=== PATIENT | male | born 1995 | race Caucasian/White ===

== ENCOUNTER 2017-11-05 15:58 | Emergency (ER) | payer BC ==
[2017-11-05] MEDS: KETOROLAC 30 MG INJ IV (18:15)
[2017-11-05] MEDS: SOD CHLORIDE 0.9% 1,000 ML IV (18:15)
[2017-11-05 18:27] LABS: ADD MAN DIFF? NO
[2017-11-05 18:33] LABS: WHITE BLOOD COUNT 8.1 10^3/ul (4.8-10.8)
[2017-11-05 18:33] LABS: BASOPHIL # 0.1 10^3/ul (0.0-0.1); BASOPHILS % 0.9 % (0.0-2.0); EOSINOPHILS # 0.1 10^3/ul (0.0-0.5); EOSINOPHILS % 1.4 % (0.0-7.0); HEMATOCRIT 50.2 % (42.0-52.0); HEMOGLOBIN 17.3 g/dl (14.0-18.0); LYMPHOCYTES # 2.7 10^3/ul (0.8-2.9); LYMPHOCYTES % 33.3 % (15.0-51.0); MEAN CORPUSCULAR HEMOGLOBIN 28.2 pg (29.0-33.0); MEAN CORPUSCULAR HGB CONC 34.5 g/dl (32.0-37.0); MEAN CORPUSCULAR VOLUME 81.9 fl (82.0-101.0); MONOCYTE # 0.5 10^3/ul (0.3-0.9); MONOCYTES % 5.8 % (0.0-11.0); NEUTROPHIL # 4.7 10^3/ul (1.6-7.5); NEUTROPHILS % 58.2 % (39.0-77.0); PLATELET COUNT 196 10^3/UL (140-415); RED BLOOD COUNT 6.13 10^6/ul (4.70-6.10)
[2017-11-05 18:51] LABS: INR 1.03; PROTIME 13.6 Sec (11.9-14.9); PT RATIO 1.1
[2017-11-05 18:52] LABS: PARTIAL THROMBOPLASTIN TIME 30.9 Sec (25.0-35.0)
[2017-11-05 18:53] LABS: ALANINE AMINOTRANSFERASE 41 IU/L (13-69); ALBUMIN 5.3 g/dl (3.3-4.9); ALBUMIN/GLOBULIN RATIO 1.26; ALKALINE PHOSPHATASE 90 IU/L (42-121); AMYLASE 74 U/L (11-123); ANION GAP 21 (8-16); ASPARTATE AMINO TRANSFERASE 53 IU/L (15-46); BLOOD UREA NITROGEN 17 mg/dl (7-20); CALCIUM 9.8 mg/dl (8.4-10.2); CARBON DIOXIDE 29 mmol/L (21-31); CHLORIDE 99 mmol/L (97-110); CREATININE 1.05 mg/dl (0.61-1.24); GLUCOSE 86 mg/dl (70-220); LIPASE 108 U/L (23-300); POTASSIUM 4.2 mmol/L (3.5-5.1); SODIUM 145 mmol/L (135-144); TOTAL PROTEIN 9.5 g/dl (6.1-8.1)
[2017-11-05] MEDS: IOHEXOL 300MG/ML 150 ML BTL (19:01)
[2017-11-05] MEDS: SOD CHLORIDE 0.9% 100 ML (19:01)
[2017-11-05] MEDS: ONDANSETRON 4 MG INJ IV (20:43)
[2017-11-05] MEDS: morphine 2 MG INJ IV (20:44)
== END 2017-11-05 21:10 | disposition home or self-care (01) ==
LOC: FTE 15:58
DX: K65.9 Peritonitis, unspecified (principal)
CPT/HCPCS: 74177; 80053; 82150; 83690; 85025; 85610; 85730; 96374; 96375; 99285-25